=== PATIENT | male | born 1950 | race Caucasian/White ===

== ENCOUNTER 2022-10-07 06:04 | Inpatient (IN) ==
--- NOTE | 2022-09-17 14:19 | PAT Medication Instructions ---
Medication Instructions Date of Service September 17, 2022 Home Medications [place] T[place] Mushroom 1 g PO QAM cholecalciferol (vitamin D3) 25 mcg (1,000 unit) tablet (Vitamin D3) 4,000 unit PO QAM famotidine 20 mg tablet 20 mg PO DAILY PRN Heartburn hydrocodone 5 mg-acetaminophen 325 mg tablet 1 tab PO BID PRN chronic pain levothyroxine 100 mcg tablet 100 mcg PO QAM multivitamin 1 tab PO QAM pregabalin 100 mg capsule 100 mg PO BID PRN Pain ropinirole 4 mg tablet 4 mg PO HS simvastatin 20 mg tablet 20 mg PO HS tamsulosin 0.4 mg capsule 0.4 mg PO QAM STOP taking 2 weeks before surgery [place] Mushroom 1 g PO QAM DO NOT take the morning of surgery cholecalciferol (vitamin D3) 25 mcg (1,000 unit) tablet (Vitamin D3) 4,000 unit PO QAM multivitamin 1 tab PO QAM Take morning of surgery With a small sip of water, OTHERWISE NOTHING TO EAT OR DRINK AFTER MIDNIGHT: levothyroxine 100 mcg tablet 100 mcg PO QAM famotidine 20 mg tablet 20 mg PO DAILY PRN Heartburn (if needed) pregabalin 100 mg capsule 100 mg PO BID PRN Pain hydrocodone 5 mg-acetaminophen 325 mg tablet 1 tab PO BID PRN chronic pain (if needed) tamsulosin 0.4 mg capsule 0.4 mg PO QAM Take evening before surgery famotidine 20 mg tablet 20 mg PO DAILY PRN Heartburn (if needed) pregabalin 100 mg capsule 100 mg PO BID PRN Pain hydrocodone 5 mg-acetaminophen 325 mg tablet 1 tab PO BID PRN chronic pain (if needed) ropinirole 4 mg tablet 4 mg PO HS simvastatin 20 mg tablet 20 mg PO HS Other Notes If you have any questions please call us at [phone] or [phone] or [phone] or [phone]
--- NOTE | 2022-09-23 10:56 | Anesthesiology Consultation ---
Date of Service September 23, 2022 Assessment & Plan (1) Encounter for pre-operative examination: - COVID screening: Per assessment on 09/23: No known COVID-19 positive contacts or current COVID-19 related symptoms. Travel screen negative. Patient vaccinated. At surgeon discretion if preop Covid testing being done. - Unable to void: Pt was unable to give urine sample at PAT visit. Per PAT tech, patient will take sample to PCP in near future- Awaiting surgeon-ordered preop UA report (Dr. Isabel/Asaf). Patient otherwise acceptable risk for surgery. Addendum 09/27/22: UA 09/25/22: clear, negative, 0-2 RBC/hpf. No growth on culture. Chart Review Chart Review: Acceptable Risk for Surgery and Patient seen in Pre Admission Test ing Teaching & Discussion Pre-Anesthesia Teaching/Discussion Notes: Instructed NPO after midnight before surgery,except medications with 15 cc of water. Medication instructions provided according to the PAT guidelines. History Surgery Operation Date: 10/07/22 10:05 Proposed Procedures p L2-L3 Decompression with Possible Coflex, Spinal Cord Monitoring - Michael Joseph, Height/Weight Height: 6 ft 3 in Weight: 83.6 kg Allergies Allergy/AdvReac Type Severity Reaction Status Date / Time levofloxacin [From Levaquin] Allergy Severe Hives Verified 09/11/22 14:28 shellfish derived Allergy Severe Hives Verified 09/11/22 14:28 Medications Home Medications Medication Instructions Recorded Confirmed Last Taken [place] Tail Mushroom 1 g PO QAM 09/11/22 09/11/22 Unknown cholecalciferol (vitamin D3) 25 4,000 unit PO QAM 09/11/22 09/11/22 Unknown mcg (1,000 unit) tablet (Vitamin D3) famotidine 20 mg tablet 20 mg PO DAILY PRN Heartburn 09/11/22 09/11/22 Unknown hydrocodone 5 mg-acetaminophen 325 1 tab PO BID PRN chronic pain 09/11/22 09/11/22 Unknown mg tablet levothyroxine 100 mcg tablet 100 mcg PO QAM 09/11/22 09/11/22 Unknown multivitamin 1 tab PO QAM 09/11/22 09/11/22 Unknown pregabalin 100 mg capsule 100 mg PO BID PRN Pain 09/11/22 09/11/22 Unknown ropinirole 4 mg tablet 4 mg PO HS 09/11/22 09/11/22 Unknown simvastatin 20 mg tablet 20 mg PO HS 09/11/22 09/11/22 Unknown tamsulosin 0.4 mg capsule 0.4 mg PO QAM 09/11/22 09/11/22 Unknown Past Medical History Medical History Chronic pain Degenerative disc disease GERD (gastroesophageal reflux disease) H/O tongue cancer "base of the tongue" ~2009 treated with radiation/chemotherapy Hx of malignant neoplasm of prostate July 2021 with radiation treatments & hormone therapy Hx of malignant neoplasm of skin Hyperlipidemia Hypothyroidism Osteoarthritis Peripheral neuropathy bilateral feet Rotator cuff tear bilateral, no surgical intervention > chronic pain, hydrocodone PRN Scoliosis mild Spinal stenosis Exercise / Class Metabolic Activity II 4-5 Yardwork/Stairs/Walk up hill Past Family History Family History Other No family history of adverse response to anesthesia Past Surgical History Surgical History H/O knee surgery right knee (as young child) History of colonoscopy History of detached retina repair right eye x2 left eye x2 History of Mohs micrographic surgery for skin cancer History of tonsillectomy Hx of prostate biopsy S/P biopsy base of the tongue S/P cervical spinal fusion unsure of what levels were fused (20+ years ago), does have full ROM S/P epidural steroid injection Past Anesthesia History No Family Hx of Anesthesia Complications and Other (cervical fusion- trouble urinating > [place] cath, prostatitis) History of PONV No Hx of PONV and No Hx of Motion Sickness Social History Smoking Status: Former smoker tobacco type: cigarettes Do You Dip or Chew Tobacco: No Smoking End Date: Quit 2003 Hx Alcohol Use: No (No ETOH use x years) Hx Substance Use: No substance use type: does not use Review of Systems Patient denies chest pain, shortness of breath, dyspnea on exertion, fever, chills, cough, wheezing, palpitations. Physical Exam Vital Signs VITALS BP 124/75 P 68 TEMP 98.2 SP02 100%RA RESP 16 PHYSICAL Mildly decreased cervical extension range of motion. Full TMJ range of motion. TMD 4 finger breaths Mallampati Score 1 Dentition: + several caps, missing molar Lungs: clear throughout to auscultation Cardiac: regular rate and rhythm, no murmurs noted Spine: normal Carotid arteries: negative bruit Extremities: no LE edema Lab Results Anesthesia Preop Results Results Anesthesia Widget: WBC 5.88 K/ul (4.8-10.8) 09/23/22 Hgb 13.5 g/dl (14.0-18.0) L 09/23/22 Hct 40.7 % (42.0-52.0) L 09/23/22 Plt 264 K/uL (130-400) 09/23/22 Na 143 mmol/L (136-145) 09/23/22 K 3.9 mmol/L (3.5-5.1) 09/23/22 Cl 108 mmol/L (98-107) H 09/23/22 CO2 28 mmol/L (21-32) 09/23/22 BUN 15 mg/dl (6-23) 09/23/22 Creat 0.94 mg/dl (0.6-1.4) 09/23/22 Glucose Level 84 mg/dl (70-99(Fasting)) 09/23/22 PT 10.3 Seconds (9.0-12.0) 09/23/22 PTT 26.3 Seconds (21.0-31.0) 09/23/22 INR 0.9 (0.9-1.1) 09/23/22 TSH 6.580 uIu/ml (0.300-4.500) H 09/23/22 Free T4 1.14 ng/dl (0.61-1.60) 09/23/22 Blood Type A Positive 09/23/22 Antibody Screen NEGATIVE 09/23/22 Testing Electrocardiogram Date: 09/23/22 NSR at 65bpm with first degree AVB. Low voltage QRS. Chest X-Ray Date: 04/05/22 Findings: + NAD COVID-19 Risk Screen Screening Information COVID-19 Screen Date: 09/23/22 Exposure 21 Days Family/Household +COVID Last 21 Days: No Exposure 10 Days Any COVID Exposure Last 10 Days: No Symptoms Last 10 Days Experienced COVID Sx Last 10 Days: No + COVID 0-90 Days COVID + in Last 0-90 Days: No
[~2022-10-07 06:04] MED LIST: ACETAMINOPHEN 500 MG TAB PO SCH; CeleBREX 200 MG CAP PO SCH; LR 15ML/HR IV SCH; ceFAZolin 2000MG 2,000 MG/15 ML SYR IV SCH
[2022-10-07] MEDS: GABAPENTIN 300 MG CAP PO SCH ×3 (06:38→06:41)
[2022-10-07] MEDS ORDERED: ePHEDrine sulfate 50 MG/ML AMP IV PRN (07:03)
[2022-10-07] MEDS ORDERED: fentaNYL citrate PF 100 MCG/2 ML VIAL IV PRN (07:03)
[2022-10-07] MEDS ORDERED: HYDROmorphone INJ 2 MG/ML SYR/VIAL IV PRN (07:03)
[2022-10-07] MEDS ORDERED: ATROPINE SULFATE 0.1 MG/ML 10ML SYR IV PRN (07:03)
[2022-10-07] MEDS ORDERED: PROMETHAZINE HCL 12.5 MG in SODIUM CHLORIDE 0.9% 50 ML IV PRN ×2 (07:03→10:05)
[2022-10-07] MEDS ORDERED: ONDANSETRON INJ 2 MG/ML 2 ML VIAL IV PRN ×2 (07:03→10:05)
[2022-10-07] MEDS ORDERED: MIDAZOLAM HCL 1 MG/ML 2ML VIAL ONE (07:08)
[2022-10-07] MEDS ORDERED: PROPOFOL IV EMULSION 10 MG/ML 20 ML VIAL IV ONE (07:08)
[2022-10-07] MEDS ORDERED: fentaNYL citrate PF 100 MCG/2 ML VIAL ONE (07:08)
[2022-10-07] MEDS ORDERED: DEXAMETHASONE SOD INJ 4 MG/ML VIAL ONE (07:08)
[2022-10-07] MEDS ORDERED: ONDANSETRON INJ 2 MG/ML 2 ML VIAL ONE (07:08)
[2022-10-07] MEDS ORDERED: LIDOCAINE 2% 2 ML VIAL/AMP(20MG/ML) INFIL ONE (07:08)
[2022-10-07] MEDS ORDERED: ROCURONIUM BROMIDE 10 MG/ML 5 ML VIAL IV ONE ×2 (07:08→08:27)
[2022-10-07] MEDS ORDERED: ceFAZolin 330 MG/ML 1 GM VIAL ONE (07:13)
[2022-10-07] MEDS ORDERED: BUPIVACAINE/EPINEPHRINE 0.25% 1:200,000 30 ML VIAL ONE (07:13)
--- NOTE | 2022-10-07 07:34 | History & Physical Bridge Note ---
Date of Service October 07, 2022 History & Physical Bridge Note I have examined the patient, reviewed the History & Physical and in the interval since the performance of the History & Physical I have noted the following changes of clinical significance: no changes noted
--- NOTE | 2022-10-07 07:34 | History & Physical Report ---
Date of Service October 07, 2022 Assessment & Plan (1) Neurogenic claudication due to lumbar spinal stenosis: Plan: L2-L3 decompression with possible Coflex History of Present Illness Chief Complaint: Back and leg pain Primary Care Provider: Juan J Isabel DO This is a 71-year-old male presents with chronic persistent back and leg pain after failing since course of nonoperative care is here for surgical invention. Allergies Allergy/AdvReac Type Severity Reaction Status Date / Time [facility] Allergy Severe Hives Verified 10/07/22 06:33 shellfish derived Allergy Severe Hives Verified 10/07/22 06:33 Home Medications Medication Instructions Recorded Confirmed Type [place] T[place] Mushroom 1 g PO QAM 09/11/22 10/07/22 History cholecalciferol (vitamin D3) 25 4,000 unit PO QAM 09/11/22 10/07/22 History mcg (1,000 unit) tablet (Vitamin D3) famotidine 20 mg tablet 20 mg PO DAILY PRN Heartburn 09/11/22 10/07/22 History hydrocodone 5 mg-acetaminophen 325 1 tab PO BID PRN chronic pain 09/11/22 10/07/22 History mg tablet levothyroxine 100 mcg tablet 100 mcg PO QAM 09/11/22 10/07/22 History multivitamin 1 tab PO QAM 09/11/22 10/07/22 History pregabalin 100 mg capsule 100 mg PO BID PRN Pain 09/11/22 10/07/22 History ropinirole 4 mg tablet 4 mg PO HS 09/11/22 10/07/22 History simvastatin 20 mg tablet 20 mg PO HS 09/11/22 10/07/22 History tamsulosin 0.4 mg capsule 0.4 mg PO QAM 09/11/22 10/07/22 History Past Med/Surg History Medical History Chronic pain Degenerative disc disease GERD (gastroesophageal reflux disease) H/O tongue cancer "base of the tongue" ~2009 treated with radiation/chemotherapy Hx of malignant neoplasm of prostate July 2021 with radiation treatments & hormone therapy Hx of malignant neoplasm of skin Hyperlipidemia Hypothyroidism Osteoarthritis Peripheral neuropathy bilateral feet Rotator cuff tear bilateral, no surgical intervention > chronic pain, hydrocodone PRN Scoliosis mild Spinal stenosis Surgical History H/O knee surgery right knee (as young child) History of colonoscopy History of detached retina repair right eye x2 left eye x2 History of Mohs micrographic surgery for skin cancer History of tonsillectomy Hx of prostate biopsy S/P biopsy base of the tongue S/P cervical spinal fusion unsure of what levels were fused (20+ years ago), does have full ROM S/P epidural steroid injection Family History Other No family history of adverse response to anesthesia Social History Smoking Status: Former smoker Smoking End Date: Quit 2003; Second Hand Exposure: No; Do You Dip or Chew Tobacco: No; Tobacco Cessation Education Requested by Patient: No Hx Alcohol Use: No (No ETOH use x years) Hx Substance Use: No Preferred Language: Welsh Communication Ability: Effective Chief Pilot Required: No Beliefs That Will Affect Care: None Current Living Situation: Spouse and Family Current Living Situation Comment: and adult daughter Other Information That Helps Us Care for You: No Feels Safe at Home: Yes Safety Concerns: Feels Safe At This Time Assistive Devices: Glasses Physical Exam Physical Exam: Patient is alert and oriented Heart regular rhythm Lungs clear Results & Data Results & Data Vital Signs (Past 12 Hours) Vital Signs Temp Pulse Resp BP Pulse Ox O2 Del Method 10/07/22 06:30 36.7 C 70 20 151/88 H 100 Room Air
[2022-10-07] MEDS ORDERED: FLOSEAL HEMOSTATIC MATRIX 10ML TOP ONE (08:25)
--- NOTE | 2022-10-07 08:47 | Operative Report ---
Post Operative Report Pre & Post Diagnosis Operation Date: 10/07/22 07:45 Pre-Op Diagnosis: Neurogenic Claudication due to Lumbar Spinal Stenosis Post-Op Diagnosis: Neurogenic Claudication due to Lumbar Spinal Stenosis I identified the patient and participated in the time-out.: Yes Procedure Operation Date: 10/07/22 07:45 Actual Procedures #1 lumbar decompression bilateral medial facetectomies L2-L3. #2 placement of 16 mm Coflex interlaminar spacer L to L3. Surgeon iMchael Joseph, Truss Designer Abby Jacobsen Estimated Blood Loss 10 Findings Consistent with Post-Op Diagnosis Specimens None Indications This is a 71-year-old male presents above-mentioned diagnosis after failing course of nonoperative care is here for the above-mentioned procedure. Description of Procedure Patient was met with identified informed consent obtained. Patient was then taken to the operative suite underwent a patient placed in a prone position the [place] table top Rob frame. All bony prominences well-padded eyes inspected to ensure no external pressure placed upon the. This point the lumbar spine was prepped and draped in a sterile fashion. Sharp dissection with assistance of Bovie cautery form down to and exposing the interlaminar space at L2-L3. Then performed a midline decompression including bilateral medial facetectomies addressing severe central and lateral recess stenosis. After this was addressed a 16 mm Coflex was tamped into place the interlaminar space and crimped into position. The incision was then copiously irrigated a 10 round DARYA drain inserted it was closed with 1 Vicryl the fascia 2-0 Vicryl subcutaneously and 4 Monocryl for final skin closure. Steri-Strip sterile dressings placed. Patient awakened taken to PACU stable condition. Please note Abby Jacobsen was present out the entire procedure and all the patient positioning complex portions of the surgery and final skin closure. I attest to the content of the Intraoperative Record and any orders documented therein. Any exceptions are noted below.
--- NOTE | 2022-10-07 10:03 | Anesthesiology Progress Note ---
Date of Service October 07, 2022 Anesthesia Post Procedure Vital Signs Vital Signs: Temp Pulse Resp BP Pulse Ox O2 Del Method O2 Flow Rate 10/07/22 09:40 36.2 C L 70 13 121/66 95 Room Air 10/07/22 09:30 73 22 132/70 97 Room Air 10/07/22 09:20 76 12 131/68 97 Room Air 10/07/22 09:10 78 12 139/72 100 Oxymask 9 10/07/22 09:01 36 C L 83 12 153/77 H 100 Oxymask 9 10/07/22 06:30 36.7 C 70 20 151/88 H 100 Room Air Pain Intensity Lower Back: Pain Intensity: 3 Back: Pain Intensity: 4 Transfer of Care Handoff Completed per policy Notes Mental Status: alert / awake / arousable and participated in evaluation Patient Amnestic to Procedure: Yes Nausea / Vomiting: adequately controlled Pain: adequately controlled Airway Patency, RR, SpO2: stable & adequate BP & HR: stable & adequate Hydration State: stable & adequate Anesthetic Complications: no major complications apparent
[2022-10-07] MEDS ORDERED: METOCLOPRAMIDE HCL INJ 5 MG/ML 2 ML VIAL IV PRN (10:05)
[2022-10-07] MEDS ORDERED: diphenhydrAMINE Capsule 25 MG CAP PO PRN (10:05)
[2022-10-07] MEDS ORDERED: MAGNESIUM HYDROXIDE SUSP 30 ML UDC PO PRN (10:05)
[2022-10-07] MEDS ORDERED: LORazepam 0.5 MG TAB PO PRN (10:05)
[2022-10-07] MEDS ORDERED: ACETAMINOPHEN 1,000 MG/100 ML VIAL IV PRN (10:05)
[2022-10-07] MEDS ORDERED: hydrOXYzine HCl 25 MG TAB PO PRN (10:05)
[2022-10-07] MEDS ORDERED: HYDROmorphone INJ 0.5 MG/0.5 ML SYR IV PRN (10:05)
[2022-10-07] MEDS ORDERED: ONDANSETRON 4 MG OD TAB PO PRN (10:05)
[2022-10-07] MEDS ORDERED: ALUMINUM/MAGNESIUM SUSP 30 ML UDC PO PRN (10:05)
[2022-10-07] MEDS ORDERED: DO NOT ADMINISTER FLU VACCINE PRN (10:05)
[2022-10-07] MEDS ORDERED: LORazepam 2 MG/1 ML VIAL IV PRN (10:05)
[2022-10-07] MEDS ORDERED: SOD PHOSPHATE/SOD BIPHOSPHATE ENEMA 132 ML BTL PR PRN (10:05)
[2022-10-07] MEDS ORDERED: PREGABALIN 100 MG CAP PO PRN (10:05)
[2022-10-07] MEDS ORDERED: FAMOTIDINE 20 MG TAB PO PRN (10:05)
[2022-10-07] MEDS ORDERED: NALOXONE HCL 0.4 MG/1 ML VIAL/CARP IV PRN (10:05)
[2022-10-07] MEDS ORDERED: bisacodyL 10 MG SUPP PR PRN (10:05)
[2022-10-07] MEDS ORDERED: HYDROmorphone INJ 1 MG/ML SYRINGE IV PRN (10:05)
[2022-10-07] MEDS ORDERED: DO NOT ADMINISTER PNEUMOCOCCAL VACCINE PRN (10:05)
[2022-10-07] MEDS: MULTIVITAMIN TAB PO SCH (10:56)
[2022-10-07] MEDS: CHOLECALCIFEROL 1,000 UNITS 25 MCG TAB PO SCH (10:56)
--- NOTE | 2022-10-07 11:46 | Consultation ---
Date of Consultation October 07, 2022 Assessment & Plan (1) Neurogenic claudication due to lumbar spinal stenosis: Plan Neurogenic claudication due to lumbar spinal stenosis Status post lumbar decompression fusion L2-L3 by Dr. Joseph, POD #0 EBL 10 mL Tolerated procedure well Pain/wound management per orthopedic Activity and therapy per orthopedics Encourage incentive spirometry, bowel regimen per Ortho Hyperlipidemia Continue statin Hypothyroidism Continue levothyroxine History of tongue cancer status post chemo and radiation In remission, with residual neuropathy Continue Requip and Lyrica prn History of prostate cancer DVT prophylaxis: Per primary Dispo: Per primary Full code PCP: Thank you for this consultation. We will follow the patient with you during their hospital stay. You can reach a member of the [facility] Hospitalist Team 09/12 via hospitalist role on tiger text. Patient was seen and examined in collaboration with Dr. Dasilva, please see addendum Supervising Physician Co-Signing Physician Notes Patient was seen and examined independently. Chart reviewed. Case discussed with BERRY. History of Present Illness Requesting Physician: Dr. Joseph Reason for Consultation: Postop medical management Attending Physician: Michael Joseph, DO History of Present Illness This is a 71-year-old male who has significant past medical history of tongue cancer status post chemo and radiation with residual neuropathy, prostate cancer, history of prostatitis in relation to Wright catheter placement from prior surgery, hyperlipidemia, hypothyroidism, chronic pain, GERD who presents for elective lumbar procedure by Dr. Joseph. Patient underwent lumbar decompression fusion L2-L3. He tolerated the procedure well. Currently he denies any pain and has not yet required any narcotic medication. He is to lerating clear liquid diet. He denies nausea, vomiting, chest pain, shortness of breath, fever, chills, sweats. He has not yet urinated since the procedure. Prior to procedure he denies any bowel or bladder issues. His medications were reconciled. Allergies Allergy/AdvReac Type Severity Reaction Status Date / Time levofloxacin [From Levaquin] Allergy Severe Hives Verified 10/07/22 06:33 shellfish derived Allergy Severe Hives Verified 10/07/22 06:33 Home Medications Medication Instructions Recorded Confirmed Type [place] Tail Mushroom 1 g PO QAM 09/11/22 10/07/22 History cholecalciferol (vitamin D3) 25 4,000 unit PO QAM 09/11/22 10/07/22 History mcg (1,000 unit) tablet (Vitamin D3) famotidine 20 mg tablet 20 mg PO DAILY PRN Heartburn 09/11/22 10/07/22 History hydrocodone 5 mg-acetaminophen 325 1 tab PO BID PRN chronic pain 09/11/22 10/07/22 History mg tablet levothyroxine 100 mcg tablet 100 mcg PO QAM 09/11/22 10/07/22 History multivitamin 1 tab PO QAM 09/11/22 10/07/22 History pregabalin 100 mg capsule 100 mg PO BID PRN Pain 09/11/22 10/07/22 History ropinirole 4 mg tablet 4 mg PO DAILY 09/11/22 10/07/22 History simvastatin 20 mg tablet 20 mg PO HS 09/11/22 10/07/22 History tamsulosin 0.4 mg capsule 0.4 mg PO QAM 09/11/22 10/07/22 History oxycodone 5 mg tablet 5 mg PO Q6H PRN pain #30 tabs 10/07/22 Rx Patient History Medical History Chronic pain Degenerative disc disease GERD (gastroesophageal reflux disease) H/O tongue cancer "base of the tongue" ~2009 treated with radiation/chemotherapy Hx of malignant neoplasm of prostate July 2021 with radiation treatments & hormone therapy Hx of malignant neoplasm of skin Hyperlipidemia Hypothyroidism Osteoarthritis Peripheral neuropathy bilateral feet Rotator cuff tear bilateral, no surgical intervention > chronic pain, hydrocodone PRN Scoliosis mild Spinal stenosis Surgical History H/O knee surgery right knee (as young child) History of colonoscopy History of detached retina repair right eye x2 left eye x2 History of Mohs micrographic surgery for skin cancer History of tonsillectomy Hx of prostate biopsy S/P biopsy base of the tongue S/P cervical spinal fusion unsure of what levels were fused (20+ years ago), does have full ROM S/P epidural steroid injection Family History Other No family history of adverse response to anesthesia Social History Smoking Status: Former smoker Smoking End Date: Quit 2003; Second Hand Exposure: No; Do You Dip or Chew Tobacco: No; Tobacco Cessation Education Requested by Patient: No Hx Alcohol Use: No (No ETOH use x years) Hx Substance Use: No Preferred Language: Cambodian Communication Ability: Effective Sole Conditioner Required: No Beliefs That Will Affect Care: None Current Living Situation: Spouse and Family Current Living Situation Comment: and adult daughter Other Information That Helps Us Care for You: No Feels Safe at Home: Yes Safety Concerns: Feels Safe At This Time Assistive Devices: Glasses Review of Systems Review of Systems: All systems reviewed & are unremarkable except as noted in HPI & below Physical Exam Physical Exam: Constitutional: WD/WN, vitals as above, NAD, sitting up in bed, pleasant, conversing easily Head: Normocephalic, Atraumatic Eyes: PERRL, conjunctivae normal, anicteric sclerae ENMT: external ear and nose normal, oropharynx normal Neck: trachea midline, no thyromegaly normal visual inspection Respiratory: normal respiratory effort, lungs clear to auscultation, no wheeze, rales, rhonchi. Normal insp/exp effort, no accessory muscle use Cardiovascular: RRR, no murmur, no edema Vessels: no JVD or carotid bruit Chest: normal inspection of chest Abdomen: normal bowel sounds, soft, nontender, no hepatosplenomegaly Musculoskeletal: no cyanosis or clubbing, extremities motor strength 5/5 lumbar dressing CDI, DARYA drain with serosang drainage, b/l SCDs Skin: no rashes, warm and dry normal turgor Neurologic: PERRL, EOMI, accommodation nl, no face palsy, no dysarthria CN's II-XI intact bilaterally and moves all extremities Psychiatric: A+Ox3, euthymic affect Lymphatic: no cervical or axillary lymphadenopathy : deferred Results & Data Vital Signs (Past 12 Hours) Vital Signs Temp Pulse Pulse Resp BP BP Pulse Ox 10/07/22 10:50 36.3 C L 64 17 133/79 100 10/07/22 10:20 36.3 C L 60 18 143/79 H 100 10/07/22 09:50 36.3 C L 73 18 126/74 99 10/07/22 09:40 36.2 C L 70 13 121/66 95 10/07/22 09:30 73 22 132/70 97 10/07/22 09:20 76 12 131/68 97 10/07/22 09:10 78 12 139/72 100 10/07/22 09:01 36 C L 83 12 153/77 H 100 10/07/22 06:30 36.7 C 70 20 151/88 H 100 O2 Del Method O2 Flow Rate 10/07/22 10:50 Room Air 10/07/22 10:20 Room Air 10/07/22 09:50 Room Air 10/07/22 09:40 Room Air 10/07/22 09:30 Room Air 10/07/22 09:20 Room Air 10/07/22 09:10 Oxymask 9 10/07/22 09:01 Oxymask 9 10/07/22 06:30 Room Air Laboratory Results Preop labs 09/23 revealed H&H 13.5 and 40.7, WC 5.88, platelet 264, sodium 143, K3.9, BUN 15, creatinine 0.94 Diagnostic Findings Preop chest x-ray from 04/05/2022 negative for any acute cardiopulmonary disease. Medications Administered Current Inpatient Medications Acetaminophen (Acetaminophen 500 Mg Tab) 1,000 mg PO Q8H PRN PRN Reason: MILD Pain Scale 1,2,3 & Pre PT Stop: 11/06/22 10:04 Al Hydrox/Mg Hydrox/Simethicone (Aluminum/Magnesium Susp 30 Ml Udc) 30 ml PO Q6H PRN PRN Reason: Dyspepsia Stop: 11/06/22 10:04 Atropine Sulfate (Atropine Sulfate 0.1 Mg/Ml 10ml Syr) 0.5 mg IV Q1M PRN PRN Reason: PACU Use-HR<40 &/or Bradycardi Stop: 10/07/22 15:03 Bisacodyl (Bisacodyl 10 Mg Supp) 10 mg AK DAILY PRN PRN Reason: Constipation Stop: 11/06/22 10:04 Diphenhydramine HCl (Diphenhydramine Capsule 25 Mg Cap) 25 mg PO Q6H PRN PRN Reason: Allergic Rhinitis/Insomnia Stop: 11/06/22 10:04 Ephedrine Sulfate (Ephedrine Sulfate 50 Mg/Ml Amp) 5 mg IV Q5M PRN PRN Reason: PACU Use Only-SBP<90 mmHg Stop: 10/07/22 15:03 Famotidine (Famotidine 20 Mg Tab) 20 mg PO Q12H PRN PRN Reason: Dyspepsia Stop: 11/06/22 10:04 Fentanyl Citrate (Fentanyl Citrate Pf 100 Mcg/2 Ml Vial) 50 mcg IV Q5M PRN PRN Reason: PACU Use Only-Pain Stop: 10/07/22 15:03 Hydromorphone HCl (Hydromorphone Inj 2 Mg/Ml Syr/Vial) 0.5 mg IV Q5M PRN PRN Reason: PACU Use Only-Pain Stop: 10/07/22 15:04 Hydromorphone HCl (Hydromorphone Inj 0.5 Mg/0.5 Ml Syr) 0.5 mg IV Q3H PRN PRN Reason: MODERATE Pain (Scale 4,5,6) & Pre PT Stop: 10/21/22 10:04 Hydromorphone HCl (Hydromorphone Inj 1 Mg/Ml Syringe) 1 mg IV Q3H PRN PRN Reason: SEVERE Pain (Scale 7,8,9,10) Stop: 10/21/22 10:04 Hydroxyzine HCl (Hydroxyzine Hcl 25 Mg Tab) 25 mg PO Q8H PRN PRN Reason: Anxiety Stop: 11/06/22 10:04 Promethazine HCl 12.5 mg/ (Sodium Chloride) 50.5 mls @ 204 mls/hr IV ONCE PRN PRN Reason: PACU Use Only-Nausea/Vomiting Stop: 10/07/22 15:04 Lactated Ringer's (Lr) 1,000 mls @ 100 mls/hr IV .Q10H [place] Stop: 11/06/22 10:04 Promethazine HCl 12.5 mg/ (Sodium Chloride) 50.5 mls @ 202 mls/hr IV Q6H PRN PRN Reason: Nausea &/or Vomiting Stop: 11/06/22 10:04 Acetaminophen (Ofirmev) 1,000 mg in 100 mls @ 400 mls/hr IV Q8H PRN PRN Reason: Pain Rating 1-3 & Pre PT Stop: 10/08/22 10:05 Cefazolin Sodium (Ancef 2000mg) 2,000 mg in 15 mls @ 3.75 mls/min IV Q8H [place]; Protocol Stop: 10/07/22 23:03 Influenza Virus Vaccine Quadrival (Do Not Administer Flu Vaccine) 1 each N/A PRN PRN PRN Reason: Notification Stop: 11/06/22 10:04 Levothyroxine Sodium (Levothyroxine Sodium 100 Mcg Tablet) 100 mcg PO DAILYBB [facility] Stop: 11/07/22 06:29 Lorazepam (Lorazepam 0.5 Mg Tab) 0.5 mg PO Q8H PRN PRN Reason: Sedation/Anxiety Stop: 11/06/22 10:04 Lorazepam (Lorazepam 2 Mg/1 Ml Vial) 0.5 mg IV Q8H PRN PRN Reason: Sedation/Anxiety Stop: 11/06/22 10:04 Magnesium Hydroxide (Magnesium Hydroxide Susp 30 Ml Udc) 30 ml PO Q24H PRN PRN Reason: Constipation Stop: 11/06/22 10:04 Metoclopramide HCl (Metoclopramide Hcl Inj 5 Mg/Ml 2 Ml Vial) 10 mg IV Q6H PRN PRN Reason: Nausea &/or Vomiting Stop: 11/06/22 10:04 Multivitamins (Multivitamin Tab) 1 tab PO QAM [place] Stop: 11/06/22 10:04 Last Admin: 10/07/22 10:56 Dose: Not Given Naloxone HCl (Naloxone Hcl 0.4 Mg/1 Ml Vial/Carp) 0.1 mg IV Q5M PRN PRN Reason: Oversedation/Resp depression Stop: 11/06/22 10:04 Ondansetron HCl (Ondansetron Inj 2 Mg/Ml 2 Ml Vial) 4 mg IV ONCE PRN PRN Reason: PACU Use Only-Nausea/Vomiting Stop: 10/07/22 15:04 Ondansetron HCl (Ondansetron Inj 2 Mg/Ml 2 Ml Vial) 4 mg IV Q6H PRN PRN Reason: Nausea &/or Vomiting Stop: 11/06/22 10:04 Ondansetron HCl (Ondansetron 4 Mg Od Tab) 4 mg PO Q6H PRN PRN Reason: Nausea Stop: 11/06/22 10:04 Oxycodone HCl (Oxycodone Hcl Ir 5 Mg Tab (Immediate Release)) 5 - 10 mg PO Q4H PRN PRN Reason: Pain & Pre PT Stop: 10/21/22 10:04 Pneumococcal Polyvalent Vaccine (Do Not Administer Pneumococcal Vaccine) 1 each N/A PRN PRN PRN Reason: Notification Stop: 11/06/22 10:04 Polyethylene Glycol (Polyethylene (Miralax) 17 Gm Pack) 17 gm PO Q6 [facility] Stop: 11/07/22 05:59 Pregabalin (Pregabalin 100 Mg Cap) 100 mg PO BID PRN PRN Reason: Pain Stop: 11/06/22 10:04 Ropinirole HCl (Ropinirole Hcl 2 Mg Tablet) 4 mg PO DAILY@1900 [facility] Stop: 11/07/22 08:59 Senna/Docusate Sodium (Docusate Sodium/Senna 50/8.6mg Tab) 2 tab PO HS [place] Stop: 11/06/22 20:59 Simvastatin (Simvastatin 20 Mg Tab) 20 mg PO HS [facility] Stop: 11/06/22 20:59 Sodium Biphosphate/Sodium Phosphate (Sod Phosphate/Sod Biphosphate Enema 132 Ml Btl) 132 ml [place] ONE PRN PRN Reason: Constipation Stop: 11/06/22 10:04 Tamsulosin HCl (Tamsulosin Hcl 0.4 Mg Cap) 0.4 mg PO QAM [facility] Stop: 11/07/22 08:59 Vitamin D (Cholecalciferol 1,000 Units 25 Mcg Tab) 4,000 units PO QAM [facility] Stop: 11/06/22 10:04 Last Admin: 10/07/22 10:56 Dose: Not Given ECG Rate (beats per minute): 65 Rhythm: normal sinus Findings: + 1st degree AV block
[2022-10-07] MEDS: oxyCODONE HCL IR 5 MG TAB (IMMEDIATE RELEASE) PO PRN ×2 (12:17→18:07)
[2022-10-07] MEDS: LACTATED RINGER'S 1,000 ML IV SCH (12:19)
--- NOTE | 2022-10-07 12:54 | Fluoroscopy Report ---
FL spine 1V any level CLINICAL HISTORY: L2-L3 DECOMPRESSION WITH POSSIBLE COFLEX COMPARISON STUDY: None. FLUOROSCOPY TIME: 11 seconds. Ka, r: 6.72 mGy FLUOROSCOPIC IMAGES: 2. FINDINGS: Posterior decompression at L2-L3 is noted with placement of a Coflex device. IMPRESSION: Fluoroscopy provided during L2-L3 posterior decompression with placement of a Coflex kimmy ce. ACT 112: Negative or not required by law. Electronically signed by: Carlo Melgar M.D. 10/07/2022 12:53 PM
[2022-10-07] MEDS: ceFAZolin 2000MG 2,000 MG/15 ML SYR IV SCH (15:42)
[2022-10-07] MEDS ORDERED: rOPINIRole HCL 2 MG TABLET PO SCH (19:00)
[2022-10-07] MEDS: DOCUSATE SODIUM/SENNA 50/8.6MG TAB PO SCH (20:45)
[2022-10-07] MEDS: SIMVASTATIN 20 MG TAB PO SCH (20:45)
[2022-10-08] MEDS: ceFAZolin 2000MG 2,000 MG/15 ML SYR IV SCH (00:29)
[2022-10-08] MEDS: LACTATED RINGER'S 1,000 ML IV SCH ×2 (00:52→05:50)
[2022-10-08] MEDS: oxyCODONE HCL IR 5 MG TAB (IMMEDIATE RELEASE) PO PRN ×2 (03:16→09:06)
[2022-10-08] MEDS: ACETAMINOPHEN 500 MG TAB PO PRN ×2 (04:47→17:11)
[2022-10-08] MEDS: FAMOTIDINE 20 MG TAB PO PRN (04:47)
[2022-10-08] MEDS: LEVOTHYROXINE SODIUM 100 MCG TABLET PO SCH (05:52)
[2022-10-08] MEDS: POLYETHYLENE (MIRALAX) 17 GM PACK PO SCH ×4 (05:52→23:12)
[2022-10-08 08:23] LABS: Basophils # (auto) 0.01 K/uL (0-0.2); Basophils % (auto) 0.2 %; Eosinophils # (auto) 0.05 K/uL (0-0.50); Eosinophils % (auto) 0.8 %; Hematocrit (blood only) 38.1 % (42.0-52.0); Hemoglobin 12.4 g/dl (14.0-18.0); Immature Granulocytes # (auto) 0.02 K/uL (0.01-0.20); Immature Granulocytes % (auto) 0.3 %; Lymphocytes # (auto) 0.84 K/uL (1.2-3.4); Lymphocytes % (auto) 13.1 %; Mean Corpuscular Hemoglobin 31.2 pg (25.0-34.0); Mean Corpuscular Hgb Conc 32.5 g/dL (32.0-36.0); Mean Corpuscular Volume 95.7 fL (80.0-100.0); Mean Platelet Volume 8.8 fL (9.4-12.4); Monocytes # (auto) 0.72 K/uL (0.11-0.59); Monocytes % (auto) 11.2 %; Neutrophils # (auto) 4.78 K/uL (1.40-6.50); Neutrophils % (auto) 74.4 %; Platelet Count 256 K/uL (130-400); RDW Coefficient of Variation 13.5 % (11.5-14.5); RDW Standard Deviation 47.6 fL (36.4-46.3); Red Blood Count 3.98 M/uL (4.70-6.10); White Blood Count 6.42 K/ul (4.8-10.8)
[2022-10-08] MEDS: CHOLECALCIFEROL 1,000 UNITS 25 MCG TAB PO SCH (08:34)
[2022-10-08] MEDS: TAMSULOSIN HCL 0.4 MG CAP PO SCH (08:34)
[2022-10-08] MEDS: MULTIVITAMIN TAB PO SCH (08:34)
[2022-10-08 08:45] LABS: BUN Creatinine Ratio 17.9 (10-20); Calcium 9.4 mg/dl (8.6-10.3); Creatinine Clr Calc Pharmacy 99.3 ml/min; Est GFR (African American) 103.8 ml/min; Est GFR (Non-African American) 89.6 ml/min; Potassium 3.8 mmol/L (3.5-5.1)
[2022-10-08] MEDS ORDERED: rOPINIRole HCL 2 MG TABLET PO SCH (09:00)
--- NOTE | 2022-10-08 10:12 | Discharge Summary ---
Date of Service October 08, 2022 Admission HPI Per Admitting Provider This is a 71-year-old male presents with chronic persistent back and leg pain after failing since course of nonoperative care is here for surgical invention. Principal Diagnosis Lumbar spinal stenosis with neurogenic claudication Discharge Data Allergies Allergy/AdvReac Type Severity Reaction Status Date / Time levofloxacin [From Levaquin] Allergy Severe Hives Verified 10/07/22 06:33 shellfish derived Allergy Severe Hives Verified 10/07/22 06:33 Consultations 10/07/22 10:05 Consult Hospitalist Routine Procedures Performed Operation Date: 10/07/22 07:45 Actual Procedures p L2-L3 Decompression with Coflex(Not Applicable) - Michael Joseph DO Ordered Studies 10/07/22 07:45 [place] spine 1V any level Routine Hospital Course (1) Neurogenic claudication due to lumbar spinal stenosis: Patient underwent lumbar decompression tolerated as well as taken orthopedic for postoperative. Postop day 1 is up and ambulating. Excellent strength testing. DARYA drain decreasing appropriate. Pain well controlled. Subsequent discharge home. Discharge orders instructions found in chart for further review. Total Time Total Time Spent Total Time Spent (In Minutes): 20 minutes Discharge Plan Discharge Items Patient Disposition: Home - Self-Care Reason For Visit: POSTOP Discharge Diagnosis: Lumbar spinal stenosis with neurogenic claudication Activity: As commented below Non-emergency contact: Primary Care Provider Call non-emergency contact if: you have any medication questions Follow-up/Referrals: Juan J Isabel DO [Primary Care Provider] - Diet: Regular Addtl Attending Provider Instructions: ACTIVITY RECOMMENDATIONS: SELF CARE INSTRUCTIONS AFTER A LAMINECTOMY 1. No prolonged sitting (less than 30 minutes for the first 3 weeks after surgery). 2. No bending, lifting more than 5 pounds, or twisting (roll like a log when turning in bed). 3. You may shower 3 days after surgery if no drainage from wound. Thoroughly dry wound. Do not soak in the tub. 4. Please walk as much as you can for exercise. Gradually increase the distanc e that you walk as your endurance increases. 5. You may drive in 7-10 days if you are comfortable and no longer requiring pain medications. SPECIAL CARE INSTRUCTIONS: VERY IMPORTANT TO READ AND REVIEW A. Your surgical incision has been closed with a cosmetic suture under the skin that will dissolve in about 6 weeks. In 14 days, you can use a pair of clean scissors and cut the suture that is left outside of the skin at the ends of your incision. B. Complications are uncommon, but please contact us if you have any signs or symptoms of: 1. wound infection (fever higher than 102.5 degrees F, redness, separation of wound, drainage, or increasing pain from the incision) 2. blood clots in legs (pain, swelling, redness and warmth in legs) 3. urinary tract infection (fever higher than 102.5 degrees, burning upon urination or increased frequency of urination) 4. nerve problems (inability to walk on your toes or heels, numbness, loss of bowel or bladder control) 5. any other symptoms that concern you. C. Please call the office at if you have any concerns or questions about your operation or recovery. MANAGING PAIN AFTER SPINAL SURGERY 1. Narcotic medication is intended for short-term use and will be provided for surgical pain. Surgical pain usually lasts for a period of 4-6 weeks. Narcotic medication includes Percocet, Vicodin, Darvocet, Tylenol #3 or Lortab. 2. Longer-term pain is more appropriately treated with non-narcotic medication such as Tylenol ES. 3. Muscle spasm is not appropriately treated with narcotics. Muscle relaxers such as Soma, Flexeril or Skelaxin can be used along with Tylenol ES. 4. Remember that we all live with some "aches and pains". This is not unusual or uncommon after an injury or as we get older. 5. We will provide appropriate medication within the normal guidelines of their prescribed use. We will also be very cautious and aware of potential abuse and extended duration of patients' medication needs. 6. Please allow 2-3 days to process refills. Prescriptions will not be mailed but must be picked up at the office. FOLLOW UP VISIT: Keep your scheduled follow-up appointment. Any questions, please call the office at . Pending Studies at Discharge: No Stand-Alone Forms: [employer], Smoking Cessation Medications and DC Order Prescriptions: New oxycodone 5 mg tablet 5 mg PO Q6H PRN (Reason: pain) Qty: 30 0RF Continued levothyroxine 100 mcg Tablet 100 mcg PO QAM famotidine 20 mg Tablet 20 mg PO DAILY PRN (Reason: Heartburn) tamsulosin 0.4 mg Capsule 0.4 mg PO QAM simvastatin 20 mg Tablet 20 mg PO HS ropinirole 4 mg Tablet 4 mg PO DAILY Rx Instructions: administer 1-3 hours before bedtime pregabalin 100 mg Capsule 100 mg PO BID PRN (Reason: Pain) hydrocodone-acetaminophen 5-325 mg Tablet 1 tab PO BID PRN (Reason: chronic pain) multivitamin Tablet 1 tab PO QAM cholecalciferol (vitamin D3) [Vitamin D3] 25 mcg (1,000 unit) Tablet 4,000 unit PO QAM [place] T[place] Mushroom 1 g PO QAM Discharge Orders: Discharge Order (Routine); Ordered 10/08/22 Ordered By: Michael Joseph Admission Data Admit Date/Time: 10/07/22 08:49 Attending Provider: Michael Joseph Admit Provider: Michael Joseph Primary Care Provider: Juan J Isabel Other Providers: Lyn Mendoza ; Hiral Conley ; Esequiel Cohen
--- NOTE | 2022-10-08 10:33 | Hospitalist Progress Note ---
Date of Service October 08, 2022 Assessment & Plan (1) Neurogenic claudication due to lumbar spinal stenosis: Plan Neurogenic claudication due to lumbar spinal stenosis Status post lumbar decompression fusion L2-L3 by Dr. Joseph, POD #1 EBL 10 mL Tolerated procedure well Pain/wound management per orthopedic Activity and therapy per orthopedics Encourage incentive spirometry, bowel regimen per Ortho Hypotension with associated bradycardia and dizziness 1st degree AV block possibly 2/2 narcotic administration and requip -will hold OXY and Requip for now, pt on high dose of requip, recommend d/c at discharge give 1 L fluid bolus and then IVF 80cc/hr NS x 2 L cycle trops, repeat ecg in a.m. transfer to tele obtain tsh and lyme screen Hyperlipidemia Continue statin Hypothyroidism Continue levothyroxine History of tongue cancer status post chemo and radiation In remission, with residual neuropathy Continue Requip and Lyrica prn History of prostate cancer DVT prophylaxis: Per primary Dispo: Per primary, pt was to be discharged today; however d/c now on hold for further monitoring. Full code PCP: Thank you for this consultation. We will follow the patient with you during their hospital stay. You can reach a member of the [facility] Hospitalist Team 09/12 via hospitalist role on tiger text. Patient was seen and examined in collaboration with Dr. Cohen, please see addendum A total of 60 was spent coordinating, documenting, and providing care for this patient excluding time spent in the performance of separately billed services. This included personally viewing all current laboratories and imaging studies, medication reconciliation, outpatient chart review, and discussion with sp ecialists. Admission and Anticipated Discharge Date Admission Date: October 07, 2022 Supervising Physician Co-Signing Physician Notes Attending Addendum: care coordinated with BERRY Hiral Conley please refer to her notes for full details, I agree with her notes patient seen and examined, records reviewed by myself as well on exam, patient seen at the bedside, IV NSS bolus in progress Blood pressure is improving Awake and alert, oriented x3 States he is feeling better Episode of hypotension, bradycardia -Heart rate 60, sinus bradycardia with first-degree AV block on stat EKG Previous EKG reviewed from September 23, 2022-heart rate 65, sinus rhythm with first- degree AV -Patient responded immediately with fluid challenge-1 L of normal saline -Denies chest pain, shortness of breath, nausea, sweating -Likely hypovolemia induced, in the setting of oxycodone use -Continue IV NSS at 80 cc/h after bolus Hold all narcotics Hold ropinirole for now- medication reaction? Check troponins, echo, repeat EKG in the morning Check TSH, Lyme screen Patient denies history of syncope/presyncope other diagnoses and plan of care as per BERRY Pierson notes Esequiel Cohen MD Subjective Patient was seen and examined in room 305. Follow-up lumbar surgery. at bedside. He is doing well this morning. He already ambulated the halls and moved his bowels. He is tolerating diet. He denies fever, chills, sweats, lightheadedness, dizziness, chest pain, shortness of breath, nausea, vomiting, abdominal pain Patient reevaluated at approximately 11 AM this morning at the request of nursing systolic blood pressure in the 70s and heart rates in the 40s complaints of dizziness, sweaty, clammy and nauseated. Pt was lying in bed when symptoms came on abruptly. He denies any chest pain, sob, palpitations, emesis or pain. Feels as if he could pass out. HR was in low 50s when I saw him and SBP 78/48. Sx started to improve after administering NSS bolus and sx gradually resolved. Discussed with Dr. Cohen at bedside. Pt previously administered 10mg oxy IR and 4mg requip. Pt tends to get, "woozy," with requip at home. Review of Systems Review of Systems: All systems reviewed & are unremarkable except as noted in HPI & below Physical Exam Physical Exam: Gen: WD/WN, M, Tall, NAD, A&O x3 HEENT: Normocephalic, atraumatic, conjunctivae moist, sclerae anicteric, mucous membranes moist. Lung: Clear to Auscultation bilaterally, no wheezes/rales/rhonchi Heart: Regular rate, regular rhythm, no murmurs, rubs, or gallops Abdomen: Soft, NT, ND +BS x 4 Extremities: No edema, lumbar dressing CDI, georges drain with serosang drainage Skin: Warm, no rash, negative turgor. Pt re evaled at ~1100 he was sweaty, clammy, diaphoretic and dizzy HR in low 50s, SBP initially 70s/40s, with improvement to 120s systolically after administering NSS bolus. EKG performed at bedside. Results & Data Results & Data Vital Signs (Past 12 Hours) Vital Signs Temp Pulse Resp BP BP Pulse Ox O2 Del Method 10/08/22 08:37 66 10/08/22 07:36 36.3 C L 58 L 18 130/71 100 Room Air 10/08/22 03:20 36.6 C 62 16 121/63 98 Room Air Medications Administered Current Inpatient Medications Acetaminophen (Acetaminophen 500 Mg Tab) 1,000 mg PO Q8H PRN PRN Reason: MILD Pain Scale 1,2,3 & Pre PT Stop: 11/06/22 10:04 Last Admin: 10/08/22 04:47 Dose: 1,000 mg Al Hydrox/Mg Hydrox/Simethicone (Aluminum/Magnesium Susp 30 Ml Udc) 30 ml PO Q6H PRN PRN Reason: Dyspepsia Stop: 11/06/22 10:04 Bisacodyl (Bisacodyl 10 Mg Supp) 10 mg [place] DAILY PRN PRN Reason: Constipation Stop: 11/06/22 10:04 Diphenhydramine HCl (Diphenhydramine Capsule 25 Mg Cap) 25 mg PO Q6H PRN PRN Reason: Allergic Rhinitis/Insomnia Stop: 11/06/22 10:04 Famotidine (Famotidine 20 Mg Tab) 20 mg PO Q12H PRN PRN Reason: Dyspepsia Stop: 11/06/22 10:04 Last Admin: 10/08/22 04:47 Dose: 20 mg Hydromorphone HCl (Hydromorphone Inj 0.5 Mg/0.5 Ml Syr) 0.5 mg IV Q3H PRN PRN Reason: MODERATE Pain (Scale 4,5,6) & Pre PT Stop: 10/21/22 10:04 Hydromorphone HCl (Hydromorphone Inj 1 Mg/Ml Syringe) 1 mg IV Q3H PRN PRN Reason: SEVERE Pain (Scale 7,8,9,10) Stop: 10/21/22 10:04 Hydroxyzine HCl (Hydroxyzine Hcl 25 Mg Tab) 25 mg PO Q8H PRN PRN Reason: Anxiety Stop: 11/06/22 10:04 Lactated Ringer's (Lr) 1,000 mls @ 100 mls/hr IV .Q10H [facility] Stop: 11/06/22 10:04 Last Admin: 10/08/22 05:50 Dose: Not Given Promethazine HCl 12.5 mg/ (Sodium Chloride) 50.5 mls @ 202 mls/hr IV Q6H PRN PRN Reason: Nausea &/or Vomiting Stop: 11/06/22 10:04 Sodium Chloride (Nss 1000ml) 500 mls @ 999 mls/hr IV .Q31M [facility] Stop: 10/08/22 11:43 Last Admin: 10/08/22 11:20 Dose: 999 mls/hr Influenza Virus Vaccine Quadrival (Do Not Administer Flu Vaccine) 1 each N/A PRN PRN PRN Reason: Notification Stop: 11/06/22 10:04 Levothyroxine Sodium (Levothyroxine Sodium 100 Mcg Tablet) 100 mcg PO DAILYBB [facility] Stop: 11/07/22 06:29 Last Admin: 10/08/22 05:52 Dose: 100 mcg Lorazepam (Lorazepam 0.5 Mg Tab) 0.5 mg PO Q8H PRN PRN Reason: Sedation/Anxiety Stop: 11/06/22 10:04 Lorazepam (Lorazepam 2 Mg/1 Ml Vial) 0.5 mg IV Q8H PRN PRN Reason: Sedation/Anxiety Stop: 11/06/22 10:04 Magnesium Hydroxide (Magnesium Hydroxide Susp 30 Ml Udc) 30 ml PO Q24H PRN PRN Reason: Constipation Stop: 11/06/22 10:04 Metoclopramide HCl (Metoclopramide Hcl Inj 5 Mg/Ml 2 Ml Vial) 10 mg IV Q6H PRN PRN Reason: Nausea &/or Vomiting Stop: 11/06/22 10:04 Multivitamins (Multivitamin Tab) 1 tab PO QAM [facility] Stop: 11/06/22 10:04 Last Admin: 10/08/22 08:34 Dose: 1 tab Naloxone HCl (Naloxone Hcl 0.4 Mg/1 Ml Vial/Carp) 0.1 mg IV Q5M PRN PRN Reason: Oversedation/Resp depression Stop: 11/06/22 10:04 Ondansetron HCl (Ondansetron Inj 2 Mg/Ml 2 Ml Vial) 4 mg IV Q6H PRN PRN Reason: Nausea &/or Vomiting Stop: 11/06/22 10:04 Ondansetron HCl (Ondansetron 4 Mg Od Tab) 4 mg PO Q6H PRN PRN Reason: Nausea Stop: 11/06/22 10:04 Oxycodone HCl (Oxycodone Hcl Ir 5 Mg Tab (Immediate Release)) 5 - 10 mg PO Q4H PRN PRN Reason: Pain & Pre PT Stop: 10/21/22 10:04 Last Admin: 10/08/22 09:06 Dose: 10 mg Pneumococcal Polyvalent Vaccine (Do Not Administer Pneumococcal Vaccine) 1 each N/A PRN PRN PRN Reason: Notification Stop: 11/06/22 10:04 Polyethylene Glycol (Polyethylene (Miralax) 17 Gm Pack) 17 gm PO Q6 [facility] Stop: 11/07/22 05:59 Last Admin: 10/08/22 05:52 Dose: Not Given Pregabalin (Pregabalin 100 Mg Cap) 100 mg PO BID PRN PRN Reason: Pain Stop: 11/06/22 10:04 Ropinirole HCl (Ropinirole Hcl 2 Mg Tablet) 4 mg PO DAILY [facility] Stop: 11/07/22 08:59 Last Admin: 10/08/22 08:34 Dose: 4 mg Senna/Docusate Sodium (Docusate Sodium/Senna 50/8.6mg Tab) 2 tab PO HS [facility] Stop: 11/06/22 20:59 Last Admin: 10/07/22 20:45 Dose: 2 tab Simvastatin (Simvastatin 20 Mg Tab) 20 mg PO HS [facility] Stop: 11/06/22 20:59 Last Admin: 10/07/22 20:45 Dose: 20 mg Sodium Biphosphate/Sodium Phosphate (Sod Phosphate/Sod Biphosphate Enema 132 Ml Btl) 132 ml [place] ONE PRN PRN Reason: Constipation Stop: 11/06/22 10:04 Tamsulosin HCl (Tamsulosin Hcl 0.4 Mg Cap) 0.4 mg PO QAM [facility] Stop: 11/07/22 08:59 Last Admin: 10/08/22 08:34 Dose: 0.4 mg Vitamin D (Cholecalciferol 1,000 Units 25 Mcg Tab) 4,000 units PO QAM [facility] Stop: 11/06/22 10:04 Last Admin: 10/08/22 08:34 Dose: 4,000 units ECG Rate (beats per minute): 60 Rhythm: normal sinus Additional Comments: per my independent interpretation pt with prolonged [place] interval and 1st degree AV block.
[2022-10-08] MEDS ORDERED: SODIUM CHLORIDE 0.9% 500 ML IV ONE (11:00)
[2022-10-08] MEDS ORDERED: SODIUM CHLORIDE 0.9% 1000ML 500 ML IV ONE (11:13)
[2022-10-08 11:32] LABS: Basophils # (auto) 0.02 K/uL (0-0.2); Basophils % (auto) 0.3 %; Eosinophils # (auto) 0.07 K/uL (0-0.50); Eosinophils % (auto) 0.9 %; Hematocrit (blood only) 35.2 % (42.0-52.0); Hemoglobin 11.8 g/dl (14.0-18.0); Immature Granulocytes # (auto) 0.02 K/uL (0.01-0.20); Immature Granulocytes % (auto) 0.3 %; Lymphocytes % (auto) 16.2 %; Mean Corpuscular Hemoglobin 31.2 pg (25.0-34.0); Mean Corpuscular Hgb Conc 33.5 g/dL (32.0-36.0); Mean Corpuscular Volume 93.1 fL (80.0-100.0); Mean Platelet Volume 9.1 fL (9.4-12.4); Monocytes # (auto) 1.09 K/uL (0.11-0.59); Monocytes % (auto) 14.7 %; Neutrophils # (auto) 5.01 K/uL (1.40-6.50); Neutrophils % (auto) 67.6 %; Platelet Count 258 K/uL (130-400); RDW Coefficient of Variation 13.7 % (11.5-14.5); RDW Standard Deviation 47.2 fL (36.4-46.3); Red Blood Count 3.78 M/uL (4.70-6.10); White Blood Count 7.41 K/ul (4.8-10.8)
[2022-10-08 11:56] LABS: Albumin Globulin Ratio 1.7 (0.9-2); Albumin Level 3.7 gm/dl (3.4-5.0); BUN Creatinine Ratio 17.6 (10-20); Bilirubin,Total 0.4 mg/dl (0.2-1.0); Calcium 8.7 mg/dl (8.6-10.3); Creatinine Clr Calc Pharmacy 85.1 ml/min; Est GFR (African American) 96.6 ml/min; Est GFR (Non-African American) 83.3 ml/min; Globulin 2.2 gm/dl (2.5-4.0); Potassium 3.5 mmol/L (3.5-5.1); Total Protein 5.9 gm/dl (6.0-8.3)
[2022-10-08 12:01] LABS: Troponin I High Sensitivity 3.6 pg/ml (0-20)
--- NOTE | 2022-10-08 12:07 | Electrocardiogram Report ---
Test Reason : Blood Pressure : / mmHG Vent. Rate : 060 BPM Atrial Rate : 057 BPM P-R Int : 000 ms QRS Dur : 104 ms QT Int : 428 ms P-R-T Axes : 000 026 060 degrees QTc Int : 428 ms Normal sinus rhythm with 1st degree A-V block Low voltage QRS Abnormal ECG When compared with ECG of 23-SEP-2022 11:28, No significant change Confirmed by Eliseo Louise ([id number]) on 10/08/2022 12:06:46 PM Referred By: Michael Joseph Confirmed By:Eliseo Louise
[2022-10-08 13:13] LABS: Lyme Ab IgG w/WB Rflx Negative (Negative)
[2022-10-08 13:14] LABS: Lyme Ab IgM w/WB Rflx Negative (Negative)
[2022-10-08] MEDS: SODIUM CHLORIDE 0.9% 1000ML 1,000 ML IV SCH (13:59)
[2022-10-08] MEDS: DOCUSATE SODIUM/SENNA 50/8.6MG TAB PO SCH (20:46)
[2022-10-08] MEDS: SIMVASTATIN 20 MG TAB PO SCH (20:47)
[2022-10-09] MEDS: SODIUM CHLORIDE 0.9% 1000ML 1,000 ML IV SCH (00:45)
[2022-10-09] MEDS: POLYETHYLENE (MIRALAX) 17 GM PACK PO SCH (05:01)
[2022-10-09] MEDS: FAMOTIDINE 20 MG TAB PO PRN (05:22)
[2022-10-09] MEDS: LEVOTHYROXINE SODIUM 100 MCG TABLET PO SCH (05:31)
[2022-10-09 08:00] LABS: Basophils # (auto) 0.02 K/uL (0-0.2); Basophils % (auto) 0.3 %; Eosinophils # (auto) 0.14 K/uL (0-0.50); Eosinophils % (auto) 2.1 %; Hematocrit (blood only) 36.9 % (42.0-52.0); Hemoglobin 12.1 g/dl (14.0-18.0); Immature Granulocytes # (auto) 0.02 K/uL (0.01-0.20); Immature Granulocytes % (auto) 0.3 %; Lymphocytes # (auto) 0.66 K/uL (1.2-3.4); Lymphocytes % (auto) 9.9 %; Mean Corpuscular Hgb Conc 32.8 g/dL (32.0-36.0); Mean Corpuscular Volume 94.6 fL (80.0-100.0); Mean Platelet Volume 9.5 fL (9.4-12.4); Monocytes # (auto) 0.52 K/uL (0.11-0.59); Monocytes % (auto) 7.8 %; Neutrophils # (auto) 5.28 K/uL (1.40-6.50); Neutrophils % (auto) 79.6 %; Platelet Count 275 K/uL (130-400); RDW Coefficient of Variation 13.9 % (11.5-14.5); RDW Standard Deviation 47.8 fL (36.4-46.3); White Blood Count 6.64 K/ul (4.8-10.8)
[2022-10-09] MEDS: TAMSULOSIN HCL 0.4 MG CAP PO SCH (08:13)
[2022-10-09] MEDS: MULTIVITAMIN TAB PO SCH (08:13)
[2022-10-09] MEDS: ACETAMINOPHEN 500 MG TAB PO PRN (08:14)
[2022-10-09 08:27] LABS: Albumin Globulin Ratio 1.6 (0.9-2); Albumin Level 3.9 gm/dl (3.4-5.0); BUN Creatinine Ratio 13.7 (10-20); Bilirubin,Total 0.4 mg/dl (0.2-1.0); Calcium 9.3 mg/dl (8.6-10.3); Creatinine Clr Calc Pharmacy 106.1 ml/min; Est GFR (African American) 106.7 ml/min; Globulin 2.5 gm/dl (2.5-4.0); Magnesium 1.9 mg/dl (1.7-2.4); Potassium 3.5 mmol/L (3.5-5.1); Total Protein 6.4 gm/dl (6.0-8.3)
--- NOTE | 2022-10-09 09:43 | Discharge Summary ---
Date of Service October 09, 2022 Admission HPI Per Admitting Provider This is a 71-year-old male presents with chronic persistent back and leg pain after failing since course of nonoperative care is here for surgical invention. Admission Exam (Per Admitting) Constitutional WD/WN, vitals as above Eyes normal visual church by confrontation ENMT external ear and nose normal, oropharynx normal Neck normal visual inspection Respiratory normal respiratory effort Cardiovascular Extremities: normal capillary refill Gastrointestinal (Abdomen) Inspection/Auscultation: abdomen normal to inspection Musculoskeletal Extremities: extremities normal to inspection and strength 5/5 throughout Skin no rashes, warm and dry Neurologic normal touch/pain/proprioception and moves all extremities Psychiatric A+Ox3, euthymic affect Eye Contact: good eye contact Discharge Data Consultations 10/07/22 10:05 Consult Hospitalist Routine Procedures Performed Operation Date: 10/07/22 07:45 Actual Procedures p L2-L3 Decompression with Coflex(Not Applicable) - Michael Joseph DO Hospital Course (1) Neurogenic claudication due to lumbar spinal stenosis: Pt is being discharged sarah e on POD#2 s/p lumbar decompression and Cofelx implant L2-3. On POD #1, he developed hypotension. IV fluid bolus, EKG and labs were ordered. Serial troponins have been normal. EKG unchanged. Denies CP, SOB. HE is ambulating hallways and feels great. Discharge Instructions ACTIVITY RECOMMENDATIONS: SELF CARE INSTRUCTIONS AFTER A LAMINECTOMY 1. No prolonged sitting (less than 30 minutes for the first 3 weeks after surgery). 2. No bending, lifting more than 5 pounds, or twisting (roll like a log when turning in bed). 3. You may shower 3 days after surgery if no drainage from wound. Thoroughly dry wound. Do not soak in the tub. 4. Please walk as much as you can for exercise. Gradually increase the distance that you walk as your endurance increases. 5. You may drive in 7-10 days if you are comfortable and no longer requiring pain medications. SPECIAL CARE INSTRUCTIONS: VERY IMPORTANT TO READ AND REVIEW A. Your surgical incision has been closed with a cosmetic suture under the skin that will dissolve in about 6 weeks. In 14 days, you can use a pair of clean scissors and cut the suture that is left outside of the skin at the ends of your incision. B. Complications are uncommon, but please contact us if you have any signs or symptoms of: 1. wound infection (fever higher than 102.5 degrees F, redness, separation of wound, drainage, or increasing pain from the incision) 2. blood clots in legs (pain, swelling, redness and warmth in legs) 3. urinary tract infection (fever higher than 102.5 degrees, burning upon urination or increased frequency of urination) 4. nerve problems (inability to walk on your toes or heels, numbness, loss of bowel or bladder control) 5. any other symptoms that concern you. C. Please call the office at if you have any concerns or questions about your operation or recovery. MANAGING PAIN AFTER SPINAL SURGERY 1. Narcotic medication is intended for short-term use and will be provided for surgical pain. Surgical pain usually lasts for a period of 4-6 weeks. Narcotic medication includes Percocet, Vicodin, Darvocet, Tylenol #3 or Lortab. 2. Longer-term pain is more appropriately treated with non-narcotic medication such as Tylenol ES. 3. Muscle spasm is not appropriately treated with narcotics. Muscle relaxers such as Soma, Flexeril or Skelaxin can be used along with Tylenol ES. 4. Remember that we all live with some "aches and pains". This is not unusual or uncommon after an injury or as we get older. 5. We will provide appropriate medication within the normal guidelines of their prescribed use. We will also be very cautious and aware of potential abuse and extended duration of patients' medication needs. 6. Please allow 2-3 days to process refills. Prescriptions will not be mailed but must be picked up at the office. FOLLOW UP VISIT: Keep your scheduled follow-up appointment. Any questions, please call the office at .
[2022-10-09] MEDS: CHOLECALCIFEROL 1,000 UNITS 25 MCG TAB PO SCH (09:46)
--- NOTE | 2022-10-09 10:41 | Hospitalist Progress Note ---
Date of Service October 09, 2022 Assessment & Plan (1) Neurogenic claudication due to lumbar spinal stenosis: Plan Neurogenic claudication due to lumbar spinal stenosis Status post lumbar decompression fusion L2-L3 by Dr. Joseph, POD #2 EBL 10 mL Tolerated procedure well Pain/wound management per orthopedic Activity and therapy per orthopedics Encourage incentive spirometry, bowel regimen per Ortho Hypotension with associated bradycardia and dizziness 1st degree AV block Symptoms have since resolved, likely vagal response versus medication reaction Recommend discontinue Requip at discharge I discussed this with patient and they agree He is being discharged on oxycodone and I educated him to only take 5 mg at 1 time and to not take 2 tablets as this may have also precipitated event He received IV fluids and symptoms have since resolved Telemetry monitoring revealed sinus rhythm in the 70s and 80s overnight Troponins remain negative and echocardiogram was reviewed TSH was normal and Lyme screen was negative Patient is stable for discharge and this was communicated with orthopedic surgery Hyperlipidemia Continue statin Hypothyroidism Continue levothyroxine History of tongue cancer status post chemo and radiation In remission, with residual neuropathy D/C requip, lyrica ok prn History of prostate cancer DVT prophylaxis: Per primary Dispo:D/C today Full code PCP: From [facility], recommend f/u with PCP upon discharge Thank you for this consultation. We will follow the patient with you during their hospital stay. You can reach a member of the [facility] Hospitalist Team 09/12 via hospitalist role on tiger text. Patient was seen and examined in collaboration with Dr. Wagoner, please see addendum A total of 45 was spent coordinating, documenting, and providing care for this patient excluding time spent in the performance of separately billed services. This included personally viewing all current laboratories and imaging studies, medication reconciliation, outpatient chart review, and discussion with specialists. Admission and Anticipated Discharge Date Admission Date: October 07, 2022 Supervising Physician Co-Signing Physician Notes Pt seen and examined by me, care coordinated w/ Lakshmi Conley PA-C, pls refer to her note above for further detail. Patient is status post lumbar spine surgery with Dr. Joseph, yesterday patient was orthostatic, possibly secondary to pain medications and requip. Currently patient is lying in bed, in no acute distress, he is feeling quite well, reports he has been ambulating without any difficulty. Vital signs normal and no longer orthostatic. Yesterday EKG telemetry ordered, as well as echocardiogram, which was reviewed. TSH and Lyme panel also ordered and negative. Patient is awake alert oriented answering appropriately. Heart sounds regular. Lung sounds clear to auscultation. Abdomen soft nontender nondistended. Patient is moving extremities. Skin is dry and warm. Plan to discharge patient from orthopedic service, likely later today. Recommend to hold Requip at this time and discuss further with primary care physician. MD Ciaran Subjective Patient was seen and examined in room 305. Follow-up lumbar surgery. at bedside. Patient sitting up at bedside. He is feeling better this morning. He had no further episodes of dizziness, lightheadedness, nausea or clamminess. He tolerated his meals last evening and has only been taking Tylenol for pain. He has avoided narcotics. is at bedside. He denies any chest pain, shortness of breath, nausea, vomiting or abdominal pain. He already ambulated the halls this morning. Review of Systems Review of Systems: All systems reviewed & are unremarkable except as noted in HPI & below Physical Exam Physical Exam: Gen: WD/WN, M, Tall, NAD, A&O x3 HEENT: Normocephalic, atraumatic, conjunctivae moist, sclerae anicteric, mucous membranes moist. Lung: Clear to Auscultation bilaterally, no wheezes/rales/rhonchi Heart: Regular rate, regular rhythm, no murmurs, rubs, or gallops Abdomen: Soft, NT, ND +BS x 4 Extremities: No edema, lumbar dressing CDI, georges drain with serosang drainage Skin: Warm, no rash, negative turgor. Results & Data Results & Data Vital Signs (Past 12 Hours) Vital Signs Temp Pulse Pulse Resp BP BP Pulse Ox 10/09/22 09:48 36.5 C 58 L 19 121/71 157/74 H 99 10/09/22 07:30 10/09/22 07:44 36.5 C 58 L 19 157/74 H 99 10/09/22 07:00 80 10/09/22 02:44 36.5 C 74 16 125/70 96 10/08/22 23:06 67 O2 Del Method 10/09/22 09:48 10/09/22 07:30 Room Air 10/09/22 07:44 Room Air 10/09/22 07:00 05/24/23 02:44 Room Air 10/08/22 23:06 Laboratory Results Short CBC 10/08/22 10/09/22 Range/Units 10:59 06:38 WBC 7.41 6.64 (4.8-10.8) K/ul Hgb 11.8 L 12.1 L (14.0-18.0) g/dl Hct 35.2 L 36.9 L (42.0-52.0) % Plt Count 258 275 (130-400) K/uL BMP 10/08/22 10/09/22 10:59 06:38 Sodium 139 142 Potassium 3.5 3.5 Chloride 106 109 H Carbon Dioxide 25 26 BUN 16 10 Creatinine 0.91 0.73 Glucose 94 115 H Calcium 8.7 9.3 Liver Function 10/08/22 10/09/22 Range/Units 10:59 06:38 Total Bilirubin 0.4 0.4 (0.2-1.0) mg/dl AST 16 17 (13-39) U/L ALT 11 10 (7-52) U/L Alkaline Phosphatase 103 105 H (34-104) U/L Albumin 3.7 3.9 (3.4-5.0) gm/dl Diagnostic Findings Echocardiogram: Mild concentric LVH, left ventricular wall motion is normal, LVEF 55 to 60%, aortic root dilatation diameter 3.8 cm, no significant valvular disease. Medications Administered Current Inpatient Medications Acetaminophen (Acetaminophen 500 Mg Tab) 1,000 mg PO Q8H PRN PRN Reason: MILD Pain Scale 1,2,3 & Pre PT Stop: 11/06/22 10:04 Last Admin: 10/09/22 08:14 Dose: 1,000 mg Al Hydrox/Mg Hydrox/Simethicone (Aluminum/Magnesium Susp 30 Ml Udc) 30 ml PO Q6H PRN PRN Reason: Dyspepsia Stop: 11/06/22 10:04 Bisacodyl (Bisacodyl 10 Mg Supp) 10 mg [place] DAILY PRN PRN Reason: Constipation Stop: 11/06/22 10:04 Diphenhydramine HCl (Diphenhydramine Capsule 25 Mg Cap) 25 mg PO Q6H PRN PRN Reason: Allergic Rhinitis/Insomnia Stop: 11/06/22 10:04 Famotidine (Famotidine 20 Mg Tab) 20 mg PO Q12H PRN PRN Reason: Dyspepsia Stop: 11/06/22 10:04 Last Admin: 10/09/22 05:22 Dose: 20 mg Hydromorphone HCl (Hydromorphone Inj 0.5 Mg/0.5 Ml Syr) 0.5 mg IV Q3H PRN PRN Reason: MODERATE Pain (Scale 4,5,6) & Pre PT Stop: 10/21/22 10:04 Last Admin: 10/08/22 19:38 Dose: 0.5 mg Sodium Chloride (Nss 1000ml) 1,000 mls @ 80 mls/hr IV .[id number] [facility] Stop: 10/09/22 14:48 Last Admin: 10/09/22 00:45 Dose: 80 mls/hr Influenza Virus Vaccine Quadrival (Do Not Administer Flu Vaccine) 1 each N/A PRN PRN PRN Reason: Notification Stop: 11/06/22 10:04 Levothyroxine Sodium (Levothyroxine Sodium 100 Mcg Tablet) [facility] Stop: 11/07/22 06:29 Last Admin: 10/09/22 05:31 Dose: 100 mcg Magnesium Hydroxide (Magnesium Hydroxide Susp 30 Ml Udc) 30 ml PO Q24H PRN PRN Reason: Constipation Stop: 11/06/22 10:04 Metoclopramide HCl (Metoclopramide Hcl Inj 5 Mg/Ml 2 Ml Vial) 10 mg IV Q6H PRN PRN Reason: Nausea &/or Vomiting Stop: 11/06/22 10:04 Multivitamins (Multivitamin Tab) 1 tab PO QAM [facility] Stop: 11/06/22 10:04 Last Admin: 10/09/22 08:13 Dose: 1 tab Naloxone HCl (Naloxone Hcl 0.4 Mg/1 Ml Vial/Carp) 0.1 mg IV Q5M PRN PRN Reason: Oversedation/Resp depression Stop: 11/06/22 10:04 Ondansetron HCl (Ondansetron Inj 2 Mg/Ml 2 Ml Vial) 4 mg IV Q6H PRN PRN Reason: Nausea &/or Vomiting Stop: 11/06/22 10:04 Oxycodone HCl (Oxycodone Hcl Ir 5 Mg Tab (Immediate Release)) 5 - 10 mg PO Q4H PRN PRN Reason: Pain & Pre PT Stop: 10/21/22 10:04 Last Admin: 10/08/22 09:06 Dose: 10 mg Pneumococcal Polyvalent Vaccine (Do Not Administer Pneumococcal Vaccine) 1 each N/A PRN PRN PRN Reason: Notification Stop: 11/06/22 10:04 Polyethylene Glycol (Polyethylene (Miralax) 17 Gm Pack) 17 gm PO Q6 [facility] Stop: 11/07/22 05:59 Last Admin: 10/09/22 05:01 Dose: Not Given Pregabalin (Pregabalin 100 Mg Cap) 100 mg PO BID PRN PRN Reason: Pain Stop: 11/06/22 10:04 Last Admin: 10/08/22 23:30 Dose: 100 mg Ropinirole HCl (Ropinirole Hcl 2 Mg Tablet) 4 mg PO DAILY [facility] Stop: 11/07/22 08:59 Last Admin: 10/08/22 08:34 Dose: 4 mg Senna/Docusate Sodium (Docusate Sodium/Senna 50/8.6mg Tab) 2 tab PO HS [facility] Stop: 11/06/22 20:59 Last Admin: 10/08/22 20:46 Dose: 2 tab Simvastatin (Simvastatin 20 Mg Tab) 20 mg PO HS [facility] Stop: 11/06/22 20:59 Last Admin: 10/08/22 20:47 Dose: 20 mg Sodium Biphosphate/Sodium Phosphate (Sod Phosphate/Sod Biphosphate Enema 132 Ml Btl) 132 ml [place] ONE PRN PRN Reason: Constipation Stop: 11/06/22 10:04 Tamsulosin HCl (Tamsulosin Hcl 0.4 Mg Cap) 0.4 mg [facility] [place] Stop: 11/07/22 08:59 Last Admin: 10/09/22 08:13 Dose: 0.4 mg Vitamin D (Cholecalciferol 1,000 Units 25 Mcg Tab) 4,000 units PO QAOK [facility] [place] Stop: 11/06/22 10:04 Last Admin: 10/09/22 09:46 Dose: 4,000 units
--- NOTE | 2022-10-09 11:04 | Electrocardiogram Report ---
Test Reason : Blood Pressure : / mmHG Vent. Rate : 076 BPM Atrial Rate : 076 BPM P-R Int : 196 ms QRS Dur : 094 ms QT Int : 400 ms P-R-T Axes : 049 011 063 degrees QTc Int : 450 ms Normal sinus rhythm Low voltage QRS Borderline ECG When compared with ECG of 08-OCT-2022 10:57, RI interval has increased Confirmed by Eliseo Louise ([id number]) on 10/09/2022 11:04:07 AM Referred By: Michael Joseph Confirmed By:Eliseo Louise
== END 2022-10-09 10:40 | disposition home or self-care (01) | DRG 518 ==
LOC: ASU 06:04 → 3E 08:49 → 2N 10-08 13:22